=== PATIENT | male | born 1980 ===

== ENCOUNTER 2018-01-31 09:57 | Inpatient (IN) | payer MEDICAID, OTHER ==
[2018-01-31 10:00] VITALS: BMI 27.1
--- NOTE | 2018-01-31 10:54 | C.PDOC ---
History Of Present Illness 38 year old male presents to the ED requesting heroin detox. Patient states he has been injecting heroin for the past 16 years and states his last use was yesterday. Patient denies suicidal/homicidal ideation and has no other complaints at this time. Time Seen by Provider: 01/31/18 10:27 Chief Complaint (Nursing): Substance Abuse History Per: Patient History/Exam Limitations: no limitations Onset/Duration Of Symptoms: Hrs Current Symptoms Are (Timing): Still Present Suicide/Self Injury Attempted (Context): None Modifying Factor(s): Narcotics (heroin ) Associated Symptoms: denies: Suicidal Thoughts, Suicidal Plan Involuntary Hold By: None Recent travel outside of the [place]: No Additional History Per: Patient Past Medical History Reviewed: Historical Data, Nursing Documentation, Vital Signs Vital Signs: Last Vital Signs Temp 98.2 F 01/31/18 14:12 Pulse 77 01/31/18 14:12 Resp 18 01/31/18 14:12 BP 118/73 01/31/18 14:12 Pulse Ox 95 01/31/18 14:12 - Medical History PMH: No Chronic Diseases Surgical History: No Surg Hx Family History: States: Unknown Family Hx - Social History Hx Alcohol Use: No Hx Substance Use: Yes (heroin) - Immunization History Hx Tetanus Toxoid Vaccination: No Hx Influenza Vaccination: No Hx Pneumococcal Vaccination: No Review Of Systems Psych: Positive for: Other (heroin detox ). Negative for: Suicidal ideation Physical Exam - Physical Exam Appears: Well, Non-toxic, No Acute Distress Skin: Normal Color, Warm, Dry, No Rash Head: Normacephalic Eye(s): bilateral: PERRL Nose: No Flaring, No Discharge, No Tenderness Oral Mucosa: Moist Throat: No Drooling Neck: Trachea Midline, Supple Cardiovascular: Rhythm Regular, No Murmur, No JVD Respiratory: No Decreased Breath Sounds, No Accessory Muscle Use, No Stridor Gastrointestinal/Abdominal: Soft, No Tenderness, No Distention, No Guarding Back: No CVA Tenderness Extremity: Normal ROM, No Tenderness, No Deformity, No Swelling Neurological/Psych: Oriented x3, Normal Speech ED Course And Treatment - Laboratory Results Result Diagrams: 01/31/18 12:05 01/31/18 12:05 Lab Interpretation: No Acute Changes O2 Sat by Pulse Oximetry: 98 (on RA) Pulse Ox Interpretation: Normal Progress Note: Blood work review and appears normal. At 11: 20, Pt is medically cleared for PES evaluation. After pt was evaluated by PES, case discussed with and admission arranged with Dx; opioite dependance, polysubstance abuse. Disposition - Disposition Disposition: HOSPITALIZED Disposition Time: 12:55 Condition: STABLE - Clinical Impression Clinical Impression: Opiate dependence - PA / [employer] / Resident Statement MD/DO has reviewed & agrees with the documentation as recorded. - Scribe Statement The provider has reviewed the documentation as recorded by the Scribe (Lianet Armando) All medical record entries made by the Scribe were at my direction and personally dictated by me. I have reviewed the chart and agree that the record accurately reflects my personal performance of the history, physical exam, medical decision making, and the department course for this patient. I have also personally directed, reviewed, and agree with the discharge instructions and disposition.
[2018-01-31 12:18] LABS: BASO # 0.1 K/uL (0.0-0.2); BASO % 0.8 % (0.0-2.0); EOS # 0.1 K/uL (0.0-0.7); EOS % 0.6 % (0.0-4.0); LYMPH # 1.3 K/uL (1.0-4.3); LYMPH % 17.1 % (20.0-40.0); MEAN CELL VOLUME 86.9 fL (80.0-94.0); MEAN CORPUSCULAR HEMOGLOBIN 29.3 pg (27.0-31.0); MEAN CORPUSCULAR HGB CONC 33.7 g/dL (33.0-37.0); MEAN PLATELET VOLUME 6.9 fL (7.2-11.7); MONO # 0.7 K/uL (0.0-0.8); MONO % 9.2 % (0.0-10.0); NEUT # 5.7 K/uL (1.8-7.0); NEUT % 72.3 % (50.0-75.0); RBC 4.1 Mil/uL (4.40-5.90); RED CELL DISTRIBUTION WIDTH 13.7 % (11.5-14.5); WHITE BLOOD COUNT 7.9 K/uL (4.8-10.8)
[2018-01-31 12:26] LABS: URINE BILIRUBIN NEGATIVE (NEGATIVE); URINE BLOOD NEGATIVE (NEGATIVE); URINE CLARITY Hazy (Clear); URINE COLOR Yellow (YELLOW); URINE GLUCOSE (UA) NORMAL (Normal); URINE LEUKOCYTE ESTERASE NEG Leu/uL (Negative); URINE PROTEIN NEGATIVE (NEGATIVE); URINE UROBILINOGEN NORMAL mg/dL (0.2-1.0)
[2018-01-31 12:32] LABS: ALT/SGPT 63 U/L (21-72); AST/SGOT 61 U/L (17-59); BLOOD UREA NITROGEN 16 mg/dL (9-20); CALCIUM 8.7 mg/dl (8.6-10.4); GFR AFRICAN-AMERICAN > 60; GFR NON-AFRICAN AMERICAN > 60
[2018-01-31 12:33] LABS: ALB/GLOB RATIO 1.2 (1.0-2.1); ALBUMIN 4.1 g/dL (3.5-5.0)
[2018-01-31 12:34] LABS: BARBITURATES, UR NEGATIVE (NEGATIVE); BENZODIAZEPINES, UR NEGATIVE (NEGATIVE); PHENCYCLIDINE, UR NEGATIVE (NEGATIVE)
[2018-01-31 12:41] LABS: OPIATES, UR POSITIVE (NEGATIVE)
--- NOTE | 2018-01-31 14:23 | PCM.BM ---
Treatment Plan Problems - Problems identified on initial assessmt potential for opiate withdrawals Date Initiated: 01/31/18 Assessment reference: NA Status: Active Treatment assets and liabiliti Patient Assests: adapts well, cooperative, motivated, ADL independent, negotiates basic needs Patient Liabilities: substance abuse - Milieu Protocol Maintain good personal hygiene: daily Encourage regular showers, daily Remind patient to perform daily oral care, daily Assist patient to perform ADL's Conduct patient checks and document Observation sheet: Q15 minutes Maintain personal safety: every shift Educate patient to report safety concerns to staff, every shift Monitor environment for contraband/sharps Medication safety: Monitor for expected outcome, potential side effects: every shift, Assess barriers to learning: every shift, Assess readiness for medication education: every shift
--- NOTE | 2018-02-01 20:41 | PCM.PSYCH ---
Initial Psychiatric Evaluation - Initial Psychiatric Evaluation Type of Admission: Voluntary Legal Status: Capacity Chief Complaint (in patient's own words): I want to be clean from by substance use. History of Present Illness and Precipitating Events: Patient is a 38 years old male, unemployed, never , no children. Patient denied any psychiatric history, was admitted for the treatment of withdrawing from heroin. Patient reported he started using heroin at 22 years of age, increased gradually up to 1-2 bundles daily, IV. Last used reported 2 days ago. Longest period of abstinence was 2-1/2 years from 2006 to 2008. He has history of 15-20 detox and the past. Cocaine: Reported using cocaine at times. Last used 4 days ago. Юлия: Reported using Юлия once a month. History of alcohol use in the past. Last use in 2004. Smokes 5-10 cigarettes daily, refused to take nicotine patch. Patient's urine drug screen was also positive for methadone. Reported he took methadone once 4- 5 days ago. Patient was incarcerated for about 30 pounds for assault. Currently on probation. Patient was born in [place], has high school graduation, not working for last 2 weeks. Reported he was fired from his job because of substance use. Never and has no children. Lives with his cousin. His height is 5 feet 11 inches and weight is 195 pounds. Current Medications: Active Medications Generic Name Dose Route Start Last Admin Trade Name Freq PRN Reason Stop Dose Admin Clonidine HCl 0.1 mg 01/31/18 16:44 Catapres PO Q8 PRN COWS Score More or Equal to 5 Hydroxyzine HCl 50 mg 01/31/18 16:45 Atarax PO Q6H PRN Anxiety Ibuprofen 600 mg 01/31/18 16:45 Motrin Tab PO Q6H PRN Pain, moderate (4-7) Loperamide HCl 2 mg 01/31/18 16:44 Imodium PO Q8 PRN Diarrhea Methadone HCl 10 mg 02/02/18 10:45 Methadone PO 02/04/18 10:44 Q24H IZABELLA Taper Nicotine 1 patch 01/31/18 15:11 02/01/18 09:24 Nicoderm Cq TD Not Given DAILY IZABELLA Ondansetron HCl 4 mg 01/31/18 16:44 Zofran Tab PO Q8 PRN Nausea/Vomiting Trazodone HCl 100 mg 01/31/18 16:45 Desyrel PO HS PRN Insomnia Past Psychiatric History - Past Psychiatric History Previous Treatment History: None History of Abuse: None reported History of ETOH/Drug Use: See HPI History of Family Illness: Reported his brother and paternal uncle has history of alcohol use disorder Pertinent Medical Hx (Current Medical&Sleep Prob, Allergies): Allergies Allergy/AdvReac Type Severity Reaction Status Date / Time No Known Allergies Allergy Verified 01/31/18 10:00 No Known Home Med 01/31/18 Review of Systems - Psychiatric Psychiatric: Other Mental Status Examination - Personal Presentation Personal Presentation: Looks stated age - Affect Affect: Other (Appropriate) - Motor Activity Motor Activity: Calm - Reliability in Providing Information Reliability in Providing Information: Fair - Speech Speech: Organized - Mood Mood: Anxious - Formal Thought Process Formal Thought Process: No Impairment Additional comments: None - Hallucinations/Delusions Hallucinations: Other (None reported) Delusions: Other - Obsessions/Compulsions Obsessions: None Compulsions: None - Cognitive Functions Orientation: Person, Place, Situation, Time Sensorium: Alert Attention/Concentration: Attentive Abstract Thinking: [place] Estimate of Intelligence: Average Judgement: Intact, as evidence by: Insight regarding need for hospitalization Memory: Recent intact, as evidence by: Ability to recall events of the day, Remote intact, as evidenced by: Ability to recall historical events - Risk Risk: Withdrawal, Diminished functioning - Strength & Assets Inventory Strength & Assets Inventory: Cooperative - Limitations Limitations: Other DSM 5 DX - DSM 5 DSM 5 Diagnosis: Opiate use disorder severe Cocaine use disorder Stimulant use disorder - Recommended/Plan of Treatment Treatment Recommendations and Plan of Treatment: Patient education Supportive therapy CBT for relapse prevention [place] for abstinence We will start methadone taper for opiate withdrawal symptoms Other when necessary medications Patient wants to go to a termite treater rehabilitation. We'll get help from social media content manager. Projected ELOS: 4-5 days - Smoking Cessation Smoking Cessation Initiated: No Reason for not providing: Patient refused
--- NOTE | 2018-02-02 18:37 | PCM.PYCHPN ---
Psychiatric Progress Note - Psychiatric Progress Note Patient seen today, length of contact: 15 Minutes Patient Chief Complaint: I'm feeling little better Problems Identified/Issues Discussed: Patient seen, chart reviewed, case discussed with the staff Issues related to illness and treatment were discussed with the patient. Reported compliant with treatment with no adverse affects. Reported feeling better with treatment. Still has few withdrawal symptoms. Mood reported as anxious. Affect appropriate. Patient was awake alert oriented 3. Denied any delusions, auditory or visual hallucinations, suicidal ideations or homicidal ideation at the time of evaluation. Medical Problems: None reported Diagnostic Results: Reviewed DSM 5 Symptoms Update: Some improvement with treatment Medication Change: No Medical Record Reviewed: Yes Mental Status Examination - Cognitive Function Orientation: Person, Place, Situation, Time Memory: Intact Attention: WNL Concentration: WNL Association: WN Fund of Knowledge: [facility] Decription of patient's judgement and insights: Fair - Mood Mood: Anxious (Less than before) - Affect Affect: Other (Appropriate) - Speech Speech: Appropriate - Formal Thought Process Formal Thought Process: No Impairment Psychotic Thoughts and Behaviors: None - Suicidal Ideation Suicidal Ideation: No - Homicidal Ideation Homicidal Ideation: No Goal/Treatment Plan - Goal/Treatment Plan Need for Continued Stay: Remain at risks for inpatient hospitalization, Discharge may exacerbated symptoms, Severe functional impairment Progress Toward Problem(s) and Goals/Treatment Plan: Patient education Supportive therapy CBT for the relapse prevention [place] for abstinence Continue treatment as before Estimated Date of D/C: 02/04/18 - Smoking Cessation Smoking Cessation Initiated: No Reason for not providing: Patient refused
[2018-02-03 10:48] VITALS: BP 96/55; PULSE 64; RESP 20; TEMP 98.1; O2SAT 98
--- NOTE | 2018-02-04 16:43 | PCM.PYCHDC ---
Mental Status Examination - Mental Status Examination Orientation: Person, Place, Situation, Time Memory: Intact Mood: Neutral Affect: Other (Appropriate) Speech: Appropriate Attention: WNL Concentration: WNL Association: WNL Fund of Knowledge: WNL Formal Thought Process: No Impairment Description of patient's judgement and insight: Fair Psychotic Thoughts and Behaviors: None Suicidal Ideation: No Current Homicidal Ideation?: No Discharge Summary - Discharge Note Reason for Hospitalization: Opiate use disorder Cocaine use Stimulant use Laboratory Data: Reviewed Consultations:: List each consultation separately and include: 1. Reason for request. 2. Findings. 3. Follow-up Summary of Hospital Course include:: 1. Description of specific treatment plan utilized for patients during their course of treatmen. 2. Summarize the time- course for resolution of acute symptoms and/or regressed behaviors. 3. Describe issues identified and worked on during hospitalization. 4. Describe medication utilized. 5. Describe medical problems identified and treated. 6. Reassessment of suicide risk Summary of Hospital Course: Patient is a 38 years old male, unemployed, never , no children. Patient denied any psychiatric history, was admitted for the treatment of withdrawing from heroin. Patient reported he started using heroin at 22 years of age, increased gradually up to 1-2 bundles daily, IV. Last used reported 2 days ago. Longest period of abstinence was 2-1/2 years from 2006 to 2008. He has history of 15-20 detox and the past. Cocaine: Reported using cocaine at times. Last used 4 days ago. Юлия: Reported using Юлия once a month. History of alcohol use in the past. Last use in 2004. Smokes 5-10 cigarettes daily, refused to take nicotine patch. Patient's urine drug screen was also positive for methadone. Reported he took methadone once 4- 5 days ago. Patient was incarcerated for about 30 pounds for assault. Currently on probation. Patient was born in [place], has high school graduation, not working for last 2 weeks. Reported he was fired from his job because of substance use. Never and has no children. Lives with his cousin. His height is 5 feet 11 inches and weight is 195 pounds. During his stay in the hospital, patient was treated with methadone taper and other when necessary medications. With the above treatment patient started feeling better. Today patient was feeling much better and he requested discharge. Patient was evaluated, was stable, discharged patient. At the time of evaluation and discharge, patient was awake alert oriented 3, had no delusions, no auditory or visual hallucinations, no suicidal ideations or homicidal ideations. Patient was discharged in a stable condition. - Final Diagnosis (DSM 5) Condition upon Discharge: STABLE Disposition: HOME/ ROUTINE - Smoking Cessation Smoking Cessation Medication prescribed: No Reason for not providing: Patient refused - Antipsychotic Medications Pt discharged on 2 or more routine antipsychotic medications: No
== END 2018-02-03 10:30 | disposition home or self-care (01) | DRG 895 ==
LOC: C.ER 09:57 → C.7D 12:55
PROVIDERS: ADMIT Psychiatry & Neurology Psychiatry; ATTEND Psychiatry & Neurology Psychiatry
PROC: HZ32ZZZ Individual Counseling for Substance Abuse Treatment, Cognitive-Behavioral (ICD-10-PCS; principal; 2018-01-31)
PROC: HZ36ZZZ Individual Counseling for Substance Abuse Treatment, Psychoeducation (ICD-10-PCS; 2018-01-31)
PROC: HZ91ZZZ Pharmacotherapy for Substance Abuse Treatment, Methadone Maintenance (ICD-10-PCS; 2018-01-31)
PROC: HZ59ZZZ Individual Psychotherapy for Substance Abuse Treatment, Supportive (ICD-10-PCS; 2018-01-31)
PROC: HZ2ZZZZ Detoxification Services for Substance Abuse Treatment (ICD-10-PCS; 2018-01-31)
DX: F11.23 Opioid dependence with withdrawal (principal); F14.10 Cocaine abuse, uncomplicated; F15.10 Other stimulant abuse, uncomplicated; F17.210 Nicotine dependence, cigarettes, uncomplicated; Z65.3 Problems related to other legal circumstances

== ENCOUNTER 2019-03-16 12:37 | Emergency (ER) | payer MEDICAID, OTHER ==
[2019-03-16 12:37] VITALS: BMI 27.1
[2019-03-16 12:47] VITALS: BP 146/53; PULSE 78; RESP 18; TEMP 98.1; O2SAT 100
--- NOTE | 2019-03-16 13:42 | C.PDOC ---
History Of Present Illness 39 year old male with PMHx of PTSD, Bipolar disorder, and ADHD presents to the ED for psychiatry evaluation. He states he wants to start following up with a Psychiatrist; he is currently in a methadone program. He does not currently see a Psychiatrist or take psychiatric medications. He does admits to being violent recently, but he has no SI/HI. Time Seen by Provider: 03/16/19 12:48 Chief Complaint (Nursing): Psychiatric Evaluation History Per: Patient History/Exam Limitations: no limitations Onset/Duration Of Symptoms: Days Current Symptoms Are (Timing): Still Present Suicide/Self Injury Attempted (Context): None Modifying Factor(s): None Associated Symptoms: denies: Suicidal Thoughts, Suicidal Plan Past Medical History Reviewed: Historical Data, Nursing Documentation, Vital Signs Vital Signs: Last Vital Signs Temp 98.1 F 03/16/19 12:43 Pulse 78 03/16/19 12:43 Resp 18 03/16/19 12:43 BP 146/53 L 03/16/19 12:43 Pulse Ox 100 03/16/19 12:43 Primary Care Provider: FAMILY PROVIDER,NO - Medical History PMH: Anxiety, Bipolar Disorder, Depression, Post Traumatic Stress Disorder Surgical History: No Surg Hx - [facility] Procedures DETOXIFICATION SERVICES FOR SUBSTANCE ABUSE TREATMENT (01/31/18) INDIV PLASTICS FITTER FOR SUBSTANCE ABUSE TREATMENT, PSYCHOEDUCATION (01/31/18) INDIV PLASTICS FITTER FOR SUBSTANCE ABUSE, COGNITIVE BEHAVIORAL (01/31/18) INDIV PSYCHOTHERAPY FOR SUBSTANCE ABUSE TREATMENT, SUPPORT (01/31/18) PHARMACOTHERAPY FOR SUBSTANCE ABUSE, METHADONE MAINT (01/31/18) Family History: States: No Known Family Hx - Social History Hx Alcohol Use: Yes Hx Substance Use: Yes (heroin,crack) - Immunization History Hx Tetanus Toxoid Vaccination: No Hx Influenza Vaccination: No Hx Pneumococcal Vaccination: No Review Of Systems Constitutional: Negative for: Fever, Chills Cardiovascular: Negative for: Chest Pain, Palpitations Respiratory: Negative for: Shortness of Breath Gastrointestinal: Negative for: Nausea, Vomiting, Abdominal Pain, Diarrhea Psych: Negative for: Suicidal ideation Physical Exam - Physical Exam Appears: Well, Non-toxic, No Acute Distress, Other (anxious, pacing around) Skin: Warm, Dry, No Rash Head: Normacephalic Eye(s): bilateral: Normal Inspection, PERRL, EOMI Oral Mucosa: Moist Neck: Supple Cardiovascular: Rhythm Regular, No Murmur Respiratory: Normal Breath Sounds, No Rales, No Rhonchi, No Wheezing Gastrointestinal/Abdominal: Normal Exam, Bowel Sounds, Soft, No Tenderness Extremity: Normal ROM, No Pedal Edema, No Calf Tenderness Extremity: Bilateral: Atraumatic, Normal Color And Temperature, Normal ROM Neurological/Psych: Oriented x3 Gait: Steady ED Course And Treatment O2 Sat by Pulse Oximetry: 100 (RA) Pulse Ox Interpretation: Normal Progress Note: Patient given referral for outpatient psychiatric services by crisis counselor. He understands he should return to ED if symptoms worsen. Disposition Counseled Patient/Family Regarding: Diagnosis - Disposition Referrals: [facility] [Outside] Disposition: HOME/ ROUTINE Disposition Time: 14:00 Condition: STABLE Instructions: Bipolar Disorder (DC), Post-traumatic Stress Disorder (DC) Forms: [employer] (German) Print Language: [place] CITIZEN - Clinical Impression Clinical Impression: Bipolar disorder - Scribe Statement The provider has reviewed the documentation as recorded by the Koriibmagi Muller All medical record entries made by the [place] were at my direction and personally dictated by me. I have reviewed the chart and agree that the record accurately reflects my personal performance of the history, physical exam, medical decision making, and the department course for this patient. I have also personally directed, reviewed, and agree with the discharge instructions and disposition.
== END 2019-03-16 14:04 | disposition home or self-care (01) ==
LOC: C.ER 12:37
DX: F31.9 Bipolar disorder, unspecified (principal); F43.10 Post-traumatic stress disorder, unspecified